=== PATIENT | female | born 1940 | race Caucasian/White ===

== ENCOUNTER → 2020-01-31 | Outpatient (CLI) | payer OTHER ==
--- NOTE | 2020-01-31 17:15 | KCIC ---
BONE DENSITY AXIAL History: Reason: POST MENOPAUSAL, LOSS OF HEIGHT, CHEMO/RADIATION / Spl. Instructions: / History: TECHNIQUE: Dual energy x-ray absorptiometry of the lumbar spine and left hip was performed. T-score of average bone mineral density based was calculated based on standard deviations above or below the expected young adult normal value. Diagnostic definitions were established by the World Health Organization. FINDINGS: The average bone mineral density associated with L1-L4 is 0.768 g/cm^2, corresponding with a T-score of -2.5. The average total bone mineral density associated with left hip is 0.744 g/cm^2, corresponding with a T-score of -1.6. No comparison examinations are available. Refer to the worksheets for full detail. IMPRESSION: 1. Osteoporosis according to the lumbar spine measurements. Electronically signed by: Tenzin Holland DO (01/31/2020 5:12 PM) [facility]
== END ==
LOC: KCIC DEXA 12:21
PROVIDERS: ATTEND Family Medicine
DX: M81.0 Age-related osteoporosis without current pathological fracture (principal); Z78.0 Asymptomatic menopausal state
CPT/HCPCS: 77080

== ENCOUNTER 2020-02-23 12:56 | Emergency (ER) | payer OTHER ==
[~2020-02-23] VITALS: Ht 157.5 cm; Wt 61.3 kg
[2020-02-23 13:27] LABS: BILIRUBIN,URINE NEGATIVE (NEG); CLARITY,URINE CLEAR; COLOR,URINE YELLOW; NITRITE,URINE NEGATIVE (NEG); PH,URINE 5.5 (<5.0-8.0); PROTEIN,URINE NEGATIVE (NEG-TRACE); UROBILINOGEN,URINE 0.2 mg/dL (0.2 mg/dL)
[2020-02-23] MEDS ORDERED: IV NORMAL SALINE 1000ML BAG 1,000 ML IV ONE (13:30)
[2020-02-23 13:37] LABS: BACTERIA,URINE MODERATE /HPF (0-FEW); HYALINE CASTS, URINE MODERATE /HPF; RBC,URINE OCC /HPF (0-2); SQUAMOUS EPITHELIAL CELL,UR FEW /LPF
--- NOTE | 2020-02-23 13:51 | PHYS DOC ---
Past Medical History Past Medical History: Anxiety, High Cholesterol Past Surgical History: Hysterectomy, Tubal ligation, Other Additional Past Surgical Histo: (L) masectomy Smoking Status: Former Smoker Alcohol Use: Rarely General Adult EDM: Chief Complaint: DIZZY/LIGHT HEADED HPI: HPI: Patient is a 79-year-old female who presents to the ED with dizziness. Patient states dizzy spells started 3 weeks ago which coincided with starting a new medication for osteoporosis. Patient describes the spells as "lightheadedness" and states that it is unrelated to her standing up abruptly. Patient states she is never experienced this type of lightheadedness before. Patient denies any new onset hearing loss, tinnitus, falls, loss of consciousness, headache. Review of Systems: Review of Systems: Constitutional: Denies fever or chills Eyes: Denies redness or eye pain HENT: Denies nasal congestion or sore throat Respiratory: Denies cough or shortness of breath Cardiovascular: Denies chest pain or palpitations GI: Denies abdominal pain, nausea, or vomiting : Denies dysuria or hematuria Musculoskeletal: Denies back pain or joint pain Integument: Denies rash or skin lesions Neurologic: Denies headache, focal weakness or sensory changes Complete systems were reviewed and found to be within normal limits, except as documented in this note. Current Medications: Current Medications Medications (Trade) Dose Ordered Sig/Sugey Start Time Stop Time Status Last Admin Dose Admin Sodium Chloride 1,000 ml @ 1,000 mls/hr 1X ONCE 02/23/20 13:30 02/23/20 14:29 Allergies: Allergies: Allergies Coded Allergies Type Severity Reaction Last Updated Verified Sulfa (Sulfonamide Antibiotics) Allergy Unknown 02/23/20 Yes Physical Exam: PE: Constitutional: Well developed, well nourished, no acute distress, non-toxic appearance HENT: Normocephalic, atraumatic Eyes: PERRL, EOMI, conjunctiva normal, no discharge Neck: Normal range of motion, no tenderness, supple Lungs & Thorax: Equal chest rise and fall bilaterally, no respiratory distress Abdomen: Soft, no tenderness Skin: Warm, dry, no erythema, no rash Back: No tenderness, no CVA tenderness Extremities: No tenderness, ROM intact, no edema Neurologic: Alert and oriented X 3, normal motor function, normal sensory function, no focal deficits noted Psychologic: Affect normal, judgment normal Current Patient Data: Vital Signs: Vital Signs Date Time Temp Pulse Resp B/P (MAP) Pulse Ox O2 Delivery O2 Flow Rate FiO2 02/23/20 13:10 98.3 68 20 172/77 (108) 96 Room Air 98.3 EKG: EKG: Date 02/23/2020 Time 13:33:31 normal heart rate at 63 bpm, regular sinus rhythm, leftward axis, QRS 78 ms, QT 408 ms, QTc 421 ms Radiology/Procedures: Radiology/Procedures: PROCEDURE: CT HEAD WO CONTRAST CT scan of the head without contrast 02/23/2020 Clinical History: Dizziness and weakness. Technique: Unenhanced, contiguous, 5 mm axial sections were obtained through the head. One or more of the following individualized dose reduction techniques were utilized for this study: 1. Automated exposure control. 2. Adjustment of the mA and/or kV according to patient size. 3. Use of iterative reconstruction technique. Findings: No previous studies are available for comparison. There is generalized parenchymal atrophy. Areas of decreased attenuation are seen within the periventricular and subcortical white matter of both cerebral hemispheres consistent with areas of small vessel ischemic disease. No acute parenchymal abnormality is seen. No extra-axial fluid collection is noted. No skull fracture is seen. Impression: No acute intracranial abnormality is seen. Electronically signed by: Romeo Quick MD (02/23/2020 2:17 PM) [id number] DICTATED and SIGNED BY: ROMEO QUICK MD DATE: 02/23/20 1417 PROCEDURE: PORTABLE CHEST 1V Single view of the chest. 02/23/2020 1:30 PM Indication: Reason: dizziness/weakness / Spl. Instructions: / History: Comparison: None Findings: There is no focal consolidation. There is no pleural effusion or pneumothorax. The cardiomediastinal silhouette and pulmonary vasculature are within normal limits. No acute osseous abnormalities are seen. Impression: No evidence of acute cardiopulmonary process. Electronically signed by: Farshad Andrews MD (02/23/2020 2:32 PM) [id number] DICTATED and SIGNED BY: FARSHAD ANDREWS MD DATE: 02/23/20 1432 Course & Med Decision Making: Course & Med Decision Making Pertinent Labs and Imaging studies reviewed. (See chart for details) Patient is a 79-year-old female presenting to the ED with complaints of dizziness. Patient stated that the past 3 weeks of dizziness coincided with her starting her new medication for osteoporosis. Patients physical exam was normal, CT showed no acute changes or abnormalities, labs showed a normocytic anemia, hypomagnesemia, and elevated BUN and creatinine. Urine analysis also showed moderate bacteria and white blood cells. Patient will be treated with PO magnesium supplement. Patient is counseled on the importance of following up with her PCP and discuss tinnitus dizziness and possible correlation with her medications. Patient stable for discharge with outpatient follow-up with PCP. Discussed findings and plan with patient, who acknowledges understanding and agreement. Dragon Disclaimer: Dragon Disclaimer: This electronic medical record was generated, in whole or in part, using a voice recognition dictation system. Departure Departure Impression: Primary Impression: Dizziness Additional Impressions: Renal insufficiency Hypomagnesemia Anemia Qualified Codes: D64.9 - Anemia, unspecified Disposition: 01 HOME, SELF-CARE Condition: STABLE Referrals: ESTHER MANCUSO MD (PCP) Patient Instructions: Anemia, FAQs, Chronic Renal Insufficiency, Dizziness, Fgwk-of-Objt, Hypomagnesemia Justicifation of Admission Dx: Justifications for Admission: Justification of Admission Dx: N/A KEZIA ALARCON DO Feb 23, 2020 13:51
[2020-02-23 14:04] LABS: BASO % 0 % (0-3); EOS # 0.1 x10^3/uL (0.0-0.7); EOS % 1 % (0-3); HEMATOCRIT 29.3 % (36.0-47.0); HEMOGLOBIN 10.2 g/dL (12.0-15.5); LYMPH # 1.9 x10^3/uL (1.0-4.8); LYMPH % 35 % (24-48); MEAN CORPUSCULAR HEMOGLOBIN 31 pg (25-35); MEAN CORPUSCULAR HGB CONC 35 g/dL (31-37); MEAN CORPUSCULAR VOLUME 89 fL (79-100); MONO # 0.3 x10^3/uL (0.0-1.1); MONO % 6 % (0-9); NEUT % 57 % (31-73); PLATELET COUNT 133 x10^3/uL (140-400); PROTHROMBIN TIME PATIENT 13.1 SEC (11.7-14.0); RED CELL DISTRIBUTION WIDTH 13.2 % (11.5-14.5); WHITE BLOOD COUNT 5.3 x10^3/uL (4.0-11.0)
--- NOTE | 2020-02-23 14:12 | EKG ---
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
[2020-02-23 14:14] LABS: CALCIUM 9.1 mg/dL (8.5-10.1); CREATININE 1.4 mg/dL (0.6-1.0); GFR 36.3; POTASSIUM 4.1 mmol/L (3.5-5.1)
[2020-02-23 14:20] LABS: ALBUMIN 4.1 g/dL (3.4-5.0); ALBUMIN/GLOBULIN RATIO 1.3 (1.0-1.7); MAGNESIUM 1.6 mg/dL (1.8-2.4); TOTAL BILIRUBIN 0.5 mg/dL (0.2-1.0); TOTAL PROTEIN 7.2 g/dL (6.4-8.2)
--- NOTE | 2020-02-23 14:20 | RAD ---
CT scan of the head without contrast 02/23/2020 Clinical History: Dizziness and weakness. Technique: Unenhanced, contiguous, 5 mm axial sections were obtained through the head. One or more of the following individualized dose reduction techniques were utilized for this study: 1. Automated exposure control. 2. Adjustment of the mA and/or kV according to patient size. 3. Use of iterative reconstruction technique. Findings: No previous studies are available for comparison. There is generalized parenchymal atrophy. Areas of decreased attenuation are seen within the periventricular and subcortical white matter of both cerebral hemispheres consistent with areas of small vessel ischemic disease. No acute parenchymal abnormality is seen. No extra-axial fluid collection is noted. No skull fracture is seen. Impression: No acute intracranial abnormality is seen. Electronically signed by: Romeo Quick MD (02/23/2020 2:17 PM) [id number]
[2020-02-23 14:24] LABS: CREATINE KINASE 46 U/L (26-192)
--- NOTE | 2020-02-23 14:35 | RAD ---
Single view of the chest. 02/23/2020 1:30 PM Indication: Reason: dizziness/weakness / Spl. Instructions: / History: Comparison: None Findings: There is no focal consolidation. There is no pleural effusion or pneumothorax. The cardiomediastinal silhouette and pulmonary vasculature are within normal limits. No acute osseous abnormalities are seen. Impression: No evidence of acute cardiopulmonary process. Electronically signed by: Farshad Garcia MD (02/23/2020 2:32 PM) [id number]
[2020-02-23 15:00] VITALS: BP 151/68
[2020-02-23] MEDS ORDERED: MAGNESIUM CHLORIDE ER 64 MG TABLET.ER PO ONE (15:00)
== END 2020-02-23 15:05 | disposition home or self-care (01) ==
LOC: ER 12:56
DX: N28.9 Disorder of kidney and ureter, unspecified (principal); E83.42 Hypomagnesemia; D64.9 Anemia, unspecified; R42 Dizziness and giddiness; F41.9 Anxiety disorder, unspecified; E78.00 Pure hypercholesterolemia, unspecified; Z90.710 Acquired absence of both cervix and uterus; Z98.51 Tubal ligation status; Z98.890 Other specified postprocedural states; Z87.891 Personal history of nicotine dependence; Z88.2 Allergy status to sulfonamides
CPT/HCPCS: 36415; 70450; 71045; 80053; 81001; 82553; 83735; 84484; 85025; 85610; 85730; 87086; 93005; 96360; 99285; J7030

== ENCOUNTER → 2020-10-18 | Outpatient (CLI) | payer MEDICARE, OTHER ==
--- NOTE | 2020-10-18 13:57 | KCIC ---
EXAM: Carotid Doppler sonogram. HISTORY: Syncope. Dizziness. Atherosclerosis. TECHNIQUE: Razo scale and color Doppler sonographic evaluation of the neck with spectral waveform luis lysis was performed and static images are submitted for review. FINDINGS: There is qwiq-ud-tabstjnq atherosclerotic plaque involving the common carotid arteries, car otid bulbs and proximal internal and external carotid arteries The peak systolic velocity within the right common carotid artery is 86 cm/sec. The peak systolic bee ocity within the right internal carotid artery is 91 cm/sec and the end diastolic velocity within the right internal carotid artery is 24 cm/sec. The right ICA/CCA ratio is 1.05. The peak systolic velocity within the left common carotid artery is 88 cm/sec. The peak systolic [place] within the left internal carotid artery is 87 cm/sec and the end diastolic velocity within the l eft internal carotid artery is 26 cm/sec. The left ICA/CCA ratio is 0.98. There is normal antegrade flow within both vertebral arteries. IMPRESSION: 1. Mild to moderate atherosclerotic plaque involving the carotid bifurcations. 2. No Doppler evidence of greater than 50 percent stenosis involving the internal carotid arteries. PQRS Compliance Statement - Stenosis calculations for CT, MR and conventional angiography are based u lisette measurement of the distal ICA diameter in accordance with the NASCET methodology. Stenosis calcu lations for carotid ultrasound studies are derived from validated velocity criteria which are known t o correlate with the NASCET methodology. Electronically signed by: Hermelinda Suggs MD (10/18/2020 1:55 PM) [id number]
--- NOTE | 2020-10-18 16:48 | KCIC ---
EXAM: Brain MRI without contrast. HISTORY: Syncope and collapse. TECHNIQUE: Multiplanar, multisequence magnetic resonance imaging of the brain was performed without c ontrast. COMPARISON: CT dated 02/23/2020. FINDINGS: There is no restricted diffusion to suggest acute or subacute infarction. There is no susce ptibility effect to suggest hemorrhage. There is no mass effect or midline shift. There is no hydroce phalus. There is mild cerebral volume loss. There are a few scattered foci of signal change within the cerebral white matter, likely due to chron ic small vessel disease in a patient of this age. There is a small osseous hemangioma within the left parietal bone. No suspicious calvarial lesion is seen. The orbits, paranasal sinuses mastoid air essie ls are unremarkable. There are normal flow voids within the cerebral vessels. IMPRESSION: 1. No acute intracranial finding. 2. Minimal bilateral cerebral white matter changes, likely due to chronic small vessel disease in a p atient of this age. 3. Cerebral volume loss. Electronically signed by: Hermelinda Suggs MD (10/18/2020 4:45 PM) [id number]
== END ==
LOC: KCIC US 12:54
PROVIDERS: ATTEND Family Medicine
DX: I65.23 Occlusion and stenosis of bilateral carotid arteries (principal); R55 Syncope and collapse; R42 Dizziness and giddiness
CPT/HCPCS: 70551; 93880

== ENCOUNTER → 2020-12-13 | Outpatient (CLI) | payer MEDICARE ==
[2020-12-05 15:00] VITALS: BP 140/77
[~2020-12-13] MED LIST: alendronate PO; atorvastatin PO; escitalopram PO
--- NOTE | 2020-12-13 16:19 | KCIC ---
EXAM: XR SCAPULA 2+ VIEWS_LT 12/13/2020 1:05 PM CLINICAL INDICATION: Recent fall, scapular pain COMPARISON: None TECHNIQUE: 2 views of the left scapula FINDINGS: There are acute, minimally displaced fractures of the left fifth and seventh ribs. No disp laced scapular fracture. Glenohumeral and acromioclavicular alignment is normal. There are mild degen erative changes. No visualized pneumothorax. IMPRESSION: 1. No displaced scapular fracture. 2. Minimally displaced, acute fractures of the left fifth and seventh ribs. No visualized pneumothora x. Electronically signed by: Supriya Garcia MD (12/13/2020 4:17 PM) [id number]
== END ==
LOC: KCIC 12:30
PROVIDERS: ATTEND Family Medicine
DX: S22.42XA Multiple fractures of ribs, left side, initial encounter for closed fracture (principal); M89.8X1 Other specified disorders of bone, shoulder; W19.XXXA Unspecified fall, initial encounter; Y93.89 Activity, other specified; Y92.89 Other specified places as the place of occurrence of the external cause; Y99.8 Other external cause status
CPT/HCPCS: 73010

== ENCOUNTER → 2021-03-05 | Outpatient (CLI) | payer MEDICARE ==
[2020-12-05 15:00] VITALS: BP 140/77
[~2021-03-05] MED LIST changes: +REGADENOSON 0.4 MG/5 ML DISP.SYRIN. IV ONE
--- NOTE | 2021-03-05 18:04 | RAD ---
MR#: [id number] Date of Study: 03/05/2021 Ordering Physician: CHRIS MANDEL Referring Physician: BETZAIDA AGUILAR Tech: RT Hugh Miller) (N) APPROVED REPORT Test Type: Pharmacological Stress Nurse/Tech: Paula Dawson R.N. Test Indications: paroxysmal atrial fibrillation Cardiac History: htn,cad Medications: See Electronic Medical Record Medical History: See Electronic Medical Record Resting ECG: SB Resting Heart Rate: 55 bpm Resting Blood Pressure: 186/62mmHg Pretest Chest Pain: No chest pain Nurse/Tech Notes S1S2, lungs CTA Consent: The procedure was explained to the patient in lay terms. Informed consent was witnessed. Aakash eout was entered into [employer]. History and Stress Test performed by RT Angela (Dalia) (N) Pharm. Details Pharmacologic stress testing was performed using 0.4mg per 5ml of regadenoson given intravenously ove r 7-10 seconds. Stress Symptoms SOA POST EXERCISE Reason for Termination: Infusion complete Max HR: 76 bpm Max Blood Pressure: 158/61mmHg Blood Pressure response to exercise: Normal blood pressure response during stress. Heart Rate response to exercise: wnl Chest Pain: No. Arrhythmia: No. ST Change: No. INTERPRETATION Stress EKG Conclusion: The resting EKG shows a sinus rhythm with minimal nonspecific ST segment simmons es. The stress EKG shows no significant changes from baseline. No EKG evidence of stress-induced ischemia. Imaging Protocol IMAGE PROTOCOL: Rest Tc-99m/stress Tc-99m 1 day Rest: Stress: Viability: Radiopharm.Tc99m IjhkmqltmKe92c Sestamibi Dose9.8mCi 31.1mCi Duration 13min. 13min. Img Date 03/05/2021 03/05/2021 Inj-Img [id number]. 45min. Rest Admin Site:IV - Right AntecubitalAdministrator: RT Angela (R)(N) Stress Admin Site: IV - Right AntecubitalAdministrator: RT Hugh Miller)(N) STRESS DATA End Diast. Vol.66.0mlLVEDV index BSA41.0ml End Syst. Vol.3.0mlLVESV index BSA2.0ml Myocardial Dhwy126.0gEject. Pulyuzbh13.0% Stress Scores Regional WT0.00Summed WT0.00 Regional WM0.00Summed WM0.00 LV Perfusion The stress scans show no significant defects. The rest scans showed no significant defects. Nuclear imaging shows no reversible ischemia or infarct. Wall Motion Left ventricular systolic function is normal with no regional wall motion abnormalities and an ejecti on fraction of greater than 70%. LV Perf. Quant 17 Seg. SSS0.00 17 Seg. SRS0.00 17 Seg. SDS0.00 Stress Defect Extent (% LAD)0.00Rest Defect Extent (% LAD)0.00Rev. Defect Extent (% LAD)0.00 Stress Defect Extent (% LCX) 0.00Rest Defect Extent (% LCX)0.00Rev. Defect Extent (% LCX)0.00 Stress Defect Extent (% RCA)0.00Rest Defect Extent (% RCA)0.00Rev. Defect Extent (% RCA)0.00 Stress Defect Extent (% OLENA)0.00Rest Defect Extent (% OLENA)0.00Rev. Defect Extent (% OLENA)0.00 Conclusion 1. No EKG evidence of stress-induced ischemia. 2. Nuclear imaging shows no reversible ischemia or infarct. 3. Normal left ventricular systolic function with an ejection fraction of greater than 70%. 4. Low risk Lexiscan nuclear stress test. Signed by : Kerwin Ortiz MD Electronically Approved : 03/05/2021 18:04:18
== END ==
LOC: NM 08:45
PROVIDERS: ATTEND Internal Medicine Cardiovascular Disease
DX: I48.0 Paroxysmal atrial fibrillation (principal)
CPT/HCPCS: 78452; 93017; A9500; J2785

== ENCOUNTER → 2021-08-02 | Outpatient (CLI) | payer MEDICARE ==
[2020-12-05 15:00] VITALS: BP 140/77
[~2021-08-02] MED LIST changes: -REGADENOSON 0.4 MG/5 ML DISP.SYRIN. IV ONE
--- NOTE | 2021-08-02 13:12 | KCIC ---
EXAM: XR LT WRIST 3VIEWS 08/02/2021 11:05 AM CLINICAL INDICATION: Left wrist pain. Fell 4 days ago. Possible old fracture. Ulna area COMPARISON: None TECHNIQUE: 3 views of the left wrist FINDINGS: The bones are diffusely demineralized. There is a chronic appearing ununited ulnar styloid process fracture, favored to be old. There is overlying soft tissue swelling. Mild degenerative join t disease of the first CMC, triscaphe, and radiocarpal joint. IMPRESSION: 1. Chronic appearing ulnar styloid fracture with overlying soft tissue swelling. 2. Osteopenia. Electronically signed by: Supriya Garcia MD (08/02/2021 1:10 PM) [facility]
== END ==
LOC: KCIC 11:01
PROVIDERS: ATTEND Family Medicine
DX: M85.88 Other specified disorders of bone density and structure, other site (principal); M79.89 Other specified soft tissue disorders; M25.532 Pain in left wrist
CPT/HCPCS: 73110

== ENCOUNTER → 2021-10-04 | Outpatient (CLI) | payer MEDICARE ==
[2020-12-05 15:00] VITALS: BP 140/77
--- NOTE | 2021-10-07 11:14 | CARD ---
MR#: [id number] Date of Study: 10/04/2021 Ordering Physician: CHRIS THAKUR, Referring Physician: CHRIS THAKUR, Tech: APPROVED REPORT PROCEDURE: Successful implantation of Medtronic reveal Linq loop recorder INDICATIONS: Atrial fibrillation management PROCEDURE DETAILS: An informed consent was obtained from patient. Patient was brought to the procedure suite and her le ft chest and shoulder were prepped and draped in the usual fashion. 20 mL of 2% lidocaine was infilt rated into the skin and subcutaneous tissues for local anesthesia. An incision was made in the left third intercostal space 1 inch from midsternal line and using the introducer and deploy provided with the kit, a Medtronic reveal Linq loop recorder serial number [id number] was placed in the subcutane ous tissue. Hemostasis was secured. Patient tolerated the procedure well. There were no immediate complications. CONCLUSION: Successful implantation of Medtronic reveal Linq loop recorder for atrial fibrillation management Signed by : Chris Thakur, Electronically Approved : 10/07/2021 11:13:55
== END | disposition home or self-care (01) ==
LOC: LINQ 10:35
PROVIDERS: ATTEND Internal Medicine Cardiovascular Disease
DX: I48.91 Unspecified atrial fibrillation (principal); I10 Essential (primary) hypertension; E78.00 Pure hypercholesterolemia, unspecified; M81.0 Age-related osteoporosis without current pathological fracture; F41.9 Anxiety disorder, unspecified; Z85.3 Personal history of malignant neoplasm of breast; Z87.891 Personal history of nicotine dependence; Z72.89 Other problems related to lifestyle; Z98.890 Other specified postprocedural states; Z88.2 Allergy status to sulfonamides
CPT/HCPCS: 33285; C1764